=== PATIENT | female | born 1955 | race Caucasian/White ===

== ENCOUNTER 2019-02-04 10:47 | Day surgery (SDC) | payer MEDICARE, OTHER ==
[2019-01-30 15:41] VITALS: BMI 42.7
[~2019-02-04 10:47] MED LIST: DEXAMETHASONE SOD PHOSPHATE 10 MG/ML 1 ML VIAL IV ONE; LACTATED RINGERS 1,000 ML IV SCH; LIDOCAINE 1% 20 ML VIAL (10MG/ML) FOR IV START INTRADERMA PRN; MIDAZOLAM 2 MG/2 ML VIAL IV PRN; ONDANSETRON 4 MG/2 ML VIAL IVP ONE; Pre Op ABX Message 1 EACH MISC MISCELLANE ONE; SCOPOLAMINE 1.5MG/72HR PATCH TRANSDERM ONE; ceFAZolin IN SWFI 2 GM/20 ML SYRINGE IVP ONE
[2019-02-04 11:23] LABS: Glucose,Whole Blood 124 mg/dL (75-99)
[2019-02-04] MEDS ORDERED: MIDAZOLAM 2 MG/2 ML VIAL ONE (14:08)
[2019-02-04] MEDS ORDERED: fentaNYL (PF) 50 MCG/ML 2 ML AMP ONE (14:08)
[2019-02-04] MEDS ORDERED: PROPOFOL 10 MG/ML 20 ML VIAL IV ONE (14:08)
[2019-02-04] MEDS ORDERED: LIDOCAINE 1% INJ 10MG/ML (20 ML MDV) ONE (14:08)
[2019-02-04] MEDS ORDERED: SUCCINYLCHOLINE CHLORIDE 100 MG/5 ML SYR IV ONE (14:08)
[2019-02-04] MEDS ORDERED: BUPIVACAINE (PF) 0.5% 30 ML VIAL SQ ONE (14:32)
--- NOTE | 2019-02-04 14:56 | P.OP ---
Date of Procedure: 02/04/19 Preoperative Diagnosis: 1. Torn medial meniscus right knee 2. Osteoarthritis right knee Postoperative Diagnosis: 1. Torn medial meniscus right knee 2. 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 Synovitis Procedure(s) Performed: 1. Arthroscopy of the right knee with partial medial meniscectomy (25% of meniscus excised) 2. Chondroplasty of the medial femoral and patellofemoral compartments 3. Partial synovectomy of the medial femoral, lateral femoral, and patellofemoral compartments Anesthesia: AYAZA Surgeon: Shahzad Mack Estimated Blood Loss (ml): 5 Pathology: none sent Condition: stable Disposition: PACU Indications for Procedure: This is a 63-year-old female presented to my office with pain in her right knee. An MRI demonstrated torn medial meniscus and after failing conservative treatment we discussed the surgical and nonsurgical treatment options with her at length. She wishes to proceed with arthroscopic debridement of her knee and informed consent was obtained. Operative Findings: The operative findings are consistent with a torn medial meniscus as well as grade 2-3 chondromalacia of the medial femoral patellofemoral compartments and a moderate amount of synovitis Description of Procedure: Patient was seen and evaluated in the preoperative area, the operative site was marked with a skin marker. The patient was then brought to the operating room and given 1 g of Ancef intravenously. A general anesthetic was administered by the anesthesia department. Tourniquet was placed on the left upper thigh and the left lower extremity was then prepped and draped in usual sterile fashion. A universal timeout was then performed confirming the patient's name, surgical site, ALLERGIES, and consent. The limb was then exsanguinated and tourniquet insufflated to 250 mmHg. Standard inferior medial and inferior lateral portals were established in the knee. The trochar was inserted in the inferolateral portal. Examination began at the patellofemoral joint. There is noted to be grade 2-3 chondral malacia the patellofemoral compartment and a moderate amount of synovitis. Next the medial compartment was visualized. There was a tear of the posterior horn of the medial meniscus. There was grade 2-3 chondral malacia the mediofemoral compartment and synovitis. The notch area was then visualized and ACL PCL were intact. The Lateral compartment was then visualized and the lateral meniscus was found to be intact, there was no evidence of chondromalacia, but a mild amount of synovitis. Next, using an arthroscopic shaver and a biter, partial medial meniscectomy was performed stable margins. Approximately 25% of the meniscus was excised. A partial synovectomy is performed the medial femoral, lateral femoral, patellofemoral compartments. Chondroplasty was also performed of the medial femoral and patellofemoral compartments of the knee. Knee was then copiously irrigated, instruments removed, incisions were closed with 4-0 nylon. 30 mL of quarter percent plain Marcaine were injected sterilely into the surgical area. A sterile dressing was then applied, and the tourniquet was released. Patient was then transferred to recovery room in stable condition.
[2019-02-04 15:18] VITALS: TEMP 97.4
[2019-02-04 15:19] VITALS: RESP 16
[2019-02-04] MEDS: HYDROmorphone 0.5 MG/0.5 ML SYRINGE IVP PRN ×2 (15:27→15:39)
[2019-02-04 15:34] LABS: Glucose,Whole Blood 140 mg/dL (75-99)
[2019-02-04 16:16] VITALS: PULSE 91
[2019-02-04] MEDS ORDERED: HYDROcodone/APAP 7.5-325MG 1 EACH TAB PO ONE (16:23)
[2019-02-04 16:39] VITALS: BP 121/76
== END 2019-02-04 17:19 | disposition home or self-care (01) ==
LOC: OR 10:47
PROVIDERS: ATTEND Orthopaedic Surgery
DX: S83.241A Other tear of medial meniscus, current injury, right knee, initial encounter (principal); X50.1XXA Overexertion from prolonged static or awkward postures, initial encounter; M17.11 Unilateral primary osteoarthritis, right knee; M22.41 Chondromalacia patellae, right knee; M65.9 Synovitis and tenosynovitis, unspecified; I10 Essential (primary) hypertension; E78.5 Hyperlipidemia, unspecified; E78.00 Pure hypercholesterolemia, unspecified; Z87.891 Personal history of nicotine dependence; J44.9 Chronic obstructive pulmonary disease, unspecified; R91.8 Other nonspecific abnormal finding of lung field; E11.9 Type 2 diabetes mellitus without complications; E55.9 Vitamin D deficiency, unspecified; L71.9 Rosacea, unspecified; E66.01 Morbid (severe) obesity due to excess calories; Z68.41 Body mass index [BMI] 40.0-44.9, adult; T38.3X6A Underdosing of insulin and oral hypoglycemic [antidiabetic] drugs, initial encounter; Z91.128 Patient's intentional underdosing of medication regimen for other reason; Z79.84 Long term (current) use of oral hypoglycemic drugs; Z79.899 Other long term (current) drug therapy; Z88.7 Allergy status to serum and vaccine
CPT/HCPCS: 29881; J2250; J1100; J2405; J2001; J3010; J0330; J2704; J1170; J0690

== ENCOUNTER → 2020-12-04 | Outpatient (CLI) | payer MEDICARE, OTHER ==
--- NOTE | 2020-12-04 11:36 | XR ---
EXAMINATION TYPE: XR KUB DATE OF EXAM: 12/04/2020 10:55 AM CLINICAL HISTORY: Left sided kidney stone. TECHNIQUE: Single upright KUB image of the abdomen is obtained. COMPARISON: None. FINDINGS: There is 1.6 cm oval shaped kidney stone left kidney suspected midpole level at superior L2 level given hypoplastic left T12 rib. Overall nonobstructive bowel gas pattern. Spleen mildly prominent. Lung bases clear. Underlying scoli otic curvature. IMPRESSION: As above.
== END | disposition home or self-care (01) ==
LOC: RADXRMAIN 10:30
PROVIDERS: ATTEND Urology
DX: N20.0 Calculus of kidney (principal)
CPT/HCPCS: 74018

== ENCOUNTER → 2024-04-07 | Outpatient (CLI) | payer MEDICARE, OTHER | END | disposition home or self-care (01) | LOC: LABWHC1 12:13 | PROVIDERS: ATTEND Ophthalmology Ophthalmic Plastic and Reconstructive Surgery | DX: Z01.818 Encounter for other preprocedural examination (principal); I49.8 Other specified cardiac arrhythmias; R94.31 Abnormal electrocardiogram [ECG] [EKG] | CPT/HCPCS: 36415; 93005 ==

== ENCOUNTER → 2024-09-29 | Outpatient (CLI) | payer MEDICARE, OTHER ==
--- NOTE | 2024-09-29 14:25 | US ---
EXAMINATION TYPE: US thyroid st tissue head/neck DATE OF EXAM: 09/29/2024 COMPARISON: NONE CLINICAL INDICATION: Female, 68 years old with history of E03.9 HYPOTHYROIDISM, UNSPECIFIED; TECHNIQUE: Grayscale and color Doppler imaging of the thyroid gland. FINDINGS: GLAND SIZE: Right Lobe: 3.5x1.4x1.7 cm Overall Parenchyma: heterogeneous Left Lobe: 3.7x1.3x1.1 cm Overall Parenchyma: heterogeneous Isthmus Thickness: 0.3 cm NODULES RIGHT: # of nodules measured on right: 0 LEFT: # of nodules measured on left: 0 ISTHMUS: # of nodules measured in the isthmus: 0 Bilateral neck scanned, no evidence of lymphadenopathy. IMPRESSION: Diffusely heterogenous thyroid gland without discrete nodule. [facility], , 09/29/2024 2:22 PM
== END | disposition home or self-care (01) ==
LOC: RADUSWWP 13:18
PROVIDERS: ATTEND Family Medicine
DX: E03.9 Hypothyroidism, unspecified (principal)
CPT/HCPCS: 76536